=== PATIENT | male | born 1960 | race Caucasian/White ===

== ENCOUNTER 2017-07-28 18:03 | Observation (INO) | payer BC ==
[2017-07-28] MEDS ORDERED: ASPIRIN 81 MG CHEWABLE TAB PO ONE (18:07)
--- NOTE | 2017-07-28 18:12 | CPEKG ---
Heart Rate: 59 RR Interval: 1017 P-R Interval: 148 QRSD Interval: 110 QT Interval: 424 QTC Interval: 420 P [place]: 58 QRS [place]: 89 T Wave [place]: 41 EKG Severity - ABNORMAL ECG - EKG Impression: SINUS RHYTHM EKG Impression: NONSPECIFIC INTRAVENTRICULAR CONDUCTION DELAY EKG Impression: Isolated J-point elevation in lead V2 Electronically Signed By: Jem Wilkes 28-Jul-2017 21:11:23
[2017-07-28 18:24] LABS: % IMMATURE GRANULYOCYTES 0.2 % (0.0-1.1); ABSOLUTE IMMATURE GRANULOCYTES 0.01 10^3/uL (0.00-0.10); ADD DIFF? NO; ADD MORPH? NO; ADD SCAN? NO; ATYPICAL LYMPHOCYTE FLAG 20 (0-99); FRAGMENT RBC FLAG 0 (0-99); HEMATOCRIT 42.9 % (40.0-51.0); HEMOGLOBIN 14.8 g/dL (13.7-17.5); LEFT SHIFT FLG 0 (0-99); LIPEMIA HEMOLYSIS FLAG 90 (0-99); MEAN CELL HEMOGLOBIN 33.2 pg (27.9-34.1); MEAN CELL HEMOGLOBIN CONCENTR. 34.5 g/dL (32.4-36.7); MEAN CELL VOLUME 96.2 fL (81.5-99.8); MEAN PLATELET VOLUME 9.6 fL (8.7-11.7); PLATELET CLUMPS FLAG 0 (0-99); PLATELET COUNT 142 10^3/uL (150-400); RED BLOOD CELL COUNT 4.46 10^6/uL (4.40-6.38); RED CELL DISTRIBUTION WIDTH 12.2 % (11.5-15.2)
--- NOTE | 2017-07-28 18:29 | EDPHY ---
H & P Stated Complaint: chest pain started yesterday with left calf/knee pain Time Seen by Provider: 07/28/17 18:06 HPI/ROS: This patient complains of chest pain. He drove himself here by private vehicle for evaluation of symptoms that started yesterday afternoon while doing house chores. He describes substernal sharp pains that are fleeting lasting to 3 sec at a time and radiating to his left neck. He noticed increased frequency of the symptoms today and there seems to be in association with exertion. He cites more frequent episodes when he is exerting today caring furniture. He also complains of new onset of left proximal calf pain described as 1 or 2/10 ache at baseline but goes up to 6 or 7 with walking. He feels there is a knot in his proximal calf associated with this. The leg symptoms started yesterday as well. He has not taken any medications for his symptoms. He notes no other associated symptoms. He has occasionally had similar chest pains in the past but only isolated episodes with no recurrent sharp pains. He does report that the chest pain seems to be associated with a deep breath as well with exhalation. ROS: No recent fevers or chills. No significant fatigue. No other constitutional symptoms HEENT: Mild coryza that he attributes to seasonal allergies. Pulmonary: No shortness of breath. No cough. Cardiovascular: Mild lightheadedness today. No heart palpitations. Leg symptoms as noted in HPI. GI: No nausea or vomiting. No GERD symptoms. Endocrine: No diaphoresis. Musculoskeletal: He played basketball last weekend and had achy muscles including his leg for a few days after but the symptoms resolved prior to the onset of his leg pain yesterday. No other musculoskeletal complaints Integumentary: No skin rash, or pallor. Complete review of symptoms otherwise negative. Source: Patient Exam Limitations: No limitations - Personal History Current Tetanus Diphtheria and Acellular Pertussis (TDAP): Yes Tetanus Vaccine Date: 2010 - Medical/Surgical History PMH: And 2013 the patient had chest pains and an angiogram by Dr. Daryl Briggs performed at [facility]. The pt. reports that he had some coronary artery disease but nothing that warranted stenting. He was prescribed nitroglycerin however for his intermittent chest pains. Patient had a heart scan performed 05/30/2017 without high score that indicated a likely high chance of significant coronary artery plaque. His total calcium score was 492 which places him in the 90th percentile for his age group. Dyslipidemia on Lipitor Hx Cardiac Disease: Yes Other PMH: celiac dx, CAD, sleep apnea - Family History Significant Family History: No pertinent family hx - Social History Smoking Status: Never smoked Alcohol Use: Rarely Drug Use: None - Physical Exam Exam: Vital signs are normal on arrival. General Appearance: Pleasant 56-year-old male appears physically fit, Alert, no distress. Eyes: Pupils equal and round no pallor or injection. ENT, Mouth: Mucous membranes moist. Respiratory: There are no retractions, lungs are clear to auscultation. Cardiovascular: Regular rate and rhythm no murmur gallop or rub. 2+ pulses are symmetric bilateral lower extremities Gastrointestinal: Abdomen is soft and nontender, no masses, bowel sounds normal. Neurological: GCS of 15 Skin: Warm and dry, no rashes. Musculoskeletal: Neck is supple nontender. Extremities are symmetrical, full range of motion. Left leg is notable for mild to moderate proximal calf tenderness extends in the popliteal region. I do not appreciate significant swelling. Homans is positive for causing discomfort to the popliteal and posterior thigh region but not to the calf. Psychiatric: Mood and affect normal DIFFERENTIAL DIAGNOSIS: After history and physical exam differential diagnosis was considered for DVT, calf muscle strain, ischemic cardiac disease, GERD with esophageal spasm, pneumothorax, dissecting aorta, uric aneurysm, Constitutional: Initial Vital Signs Temperature (C) 36.4 C 07/28/17 18:05 Heart Rate 55 L 07/28/17 18:05 Respiratory Rate 18 07/28/17 18:05 Blood Pressure 116/73 07/28/17 18:05 O2 Sat (%) 97 07/28/17 18:05 O2 Delivery Mode Room Air Allergies/Adverse Reactions: Penicillins Allergy (Unknown, Verified 07/28/17 18:21) Home Medications: Medication Instructions Recorded Atorvastatin Calcium [Lipitor 10 03/16/13 mg (RX)] ESZOPICLONE [LUNESTA] 03/16/13 NITROGLYCERIN [NITROLINGUAL] 03/16/13 Medical Decision Making - Diagnostics EKG Interpretation: 12 lead EKG performed shortly after arrival at 6:10 p.m. reveals sinus rhythm at 59 Intervals: P R of 140, QRS of 110, QTC of 420 [place]: P of 58, QRS of 89, T of 41degrees ST segments: Isolated J-point elevation in V2 otherwise Normal throughout overall assessment sinus rhythm with nonspecific interventricular conduction delay. Repeat 12 lead EKG after nitropaste reveals no interval change by my interpretation. Please refer to trace for complete read. Imaging Results: Imaging Impressions Chest X-Ray 07/28/17 18:42 IMPRESSION: Normal chest x-ray. Imaging: I viewed and interpreted images myself ED Course/Re-evaluation: IV, monitor, aspirin p.o. Patient continue with fleeting intermittent chest pains but no persistent pain. 0.5 in nitroglycerin paste. Patient feels that the frequency of the fleeting pains are slightly less frequent but still occurring. He continues to have 1 to 2/10 fleeting chest pains. Maalox p.o. without change. I spoke with Dr. Cain-[employer] cleaner bone drier for [facility] regarding this patient who recommends admission, mi rule out and treadmill test in the morning if the patient has no evidence of MD overnight. The patient agrees to be admitted but declines EMS transport signing AMA form for transport only. He understands the risk of potential cardiac arrest and and accepts this risk. Total critical care time of continuous bedside treatment: 15 min Discussion: Patient with known coronary artery disease presents with atypical chest pain that is exertional. Currently no acute abnormalities appreciated on the EKG and 1st troponin is normal. However given his known coronary disease an exertional symptoms patient warrants admission for rule out and risk stratification. - Data Points Laboratory Results: Laboratory Results 07/28/17 18:19 07/28/17 18:19 07/28/17 07/28/17 07/28/17 18:19 18:19 18:19 WBC 5.03 10^3/uL 10^3/uL (3.80-9.50) RBC 4.46 10^6/uL 10^6/uL (4.40-6.38) Hgb 14.8 g/dL g/dL (13.7-17.5) Hct 42.9 % % (40.0-51.0) MCV 96.2 fL fL (81.5-99.8) MCH 33.2 pg pg (27.9-34.1) MCHC 34.5 g/dL g/dL (32.4-36.7) RDW 12.2 % % (11.5-15.2) Plt Count 142 10^3/uL L 10^3/uL (150-400) MPV 9.6 fL fL (8.7-11.7) Neut % (Auto) 64.0 % % (39.3-74.2) Lymph % (Auto) 20.3 % % (15.0-45.0) [place] % (Auto) 14.1 % H % (4.5-13.0) Eos % (Auto) 1.0 % % (0.6-7.6) Baso % (Auto) 0.4 % % (0.3-1.7) Nucleat RBC Rel Count 0.0 % % (0.0-0.2) Absolute Neuts (auto) 3.22 10^3/uL 10^3/uL (1.70-6.50) Absolute Lymphs (auto) 1.02 10^3/uL 10^3/uL (1.00-3.00) Absolute Monos (auto) 0.71 10^3/uL 10^3/uL (0.30-0.80) Absolute Eos (auto) 0.05 10^3/uL 10^3/uL (0.03-0.40) Absolute Basos (auto) 0.02 10^3/uL 10^3/uL (0.02-0.10) Absolute Nucleated RBC 0.00 10^3/uL 10^3/uL (0-0.01) Immature Gran % 0.2 % % (0.0-1.1) Immature Gran # 0.01 10^3/uL 10^3/uL (0.00-0.10) PT 14.3 SEC SEC (12.0-15.0) INR 1.12 (0.83-1.16) APTT 30.2 SEC SEC (23.0-38.0) D-Dimer < 0.27 ug/mLFEU ug/mLFEU (0.00-0.50) Sodium 139 mEq/L mEq/L (134-144) Potassium 4.1 mEq/L mEq/L (3.5-5.2) Chloride 98 mEq/L mEq/L (97-110) Carbon Dioxide 26 mEq/l mEq/l (22-31) Anion Gap 15 mEq/L mEq/L (8-16) BUN 25 mg/dL H mg/dL (7-23) Creatinine 0.9 mg/dL mg/dL (0.7-1.3) Estimated GFR > 60 Glucose 81 mg/dL mg/dL (70-100) Calcium 9.0 mg/dL mg/dL (8.5-10.4) Troponin I < 0.012 ng/mL ng/mL (0.000-0.034) Medications Given: Discontinued Medications Al Hydroxide/Mg Hydroxide (Maalox Susp) 30 ml PO EDNOW ONE Stop: 07/28/17 20:15 Last Admin: 07/28/17 20:39 Dose: 30 ml Aspirin (Aspirin) 324 mg PO EDNOW ONE Stop: 07/28/17 18:08 Last Admin: 07/28/17 18:15 Dose: 324 mg Sodium Chloride (Ns) 1,000 mls @ 0 mls/hr IV ONCE ONE; Wide Open PRN Reason: Protocol Stop: 07/28/17 18:45 Last Admin: 07/28/17 18:52 Dose: 1,000 mls Nitroglycerin (Nitro-Bid 2%) 0.5 inch TP EDNOW ONE Stop: 07/28/17 18:45 Last Admin: 07/28/17 18:53 Dose: 0.5 inch Departure - Departure Disposition: [facility] Clinical Impression: Acute chest pain, History of coronary artery disease Condition: Fair
[2017-07-28 18:37] LABS: INR 1.12 (0.83-1.16); PROTIME(PATIENT) 14.3 SEC (12.0-15.0)
[2017-07-28 18:38] LABS: APTT 30.2 SEC (23.0-38.0)
[2017-07-28 18:39] LABS: ANION GAP 15 mEq/L (8-16); CARBON DIOXIDE 26 mEq/l (22-31); CHLORIDE 98 mEq/L (97-110); CREATININE 0.9 mg/dL (0.7-1.3); GLOMERULAR FILTRATION RATE > 60; GLUCOSE 81 mg/dL (70-100); POTASSIUM 4.1 mEq/L (3.5-5.2); SODIUM 139 mEq/L (134-144)
[2017-07-28] MEDS ORDERED: NITROGLYCERIN 2% 1 GM PACKET TP ONE (18:44)
[2017-07-28] MEDS ORDERED: NS 1,000 ML IV ONE (18:44)
[2017-07-28 18:53] LABS: TROPONIN I < 0.012 ng/mL (0.000-0.034)
--- NOTE | 2017-07-28 19:24 | CPEKG ---
Heart Rate: 57 RR Interval: 1053 P-R Interval: 144 QRSD Interval: 112 QT Interval: 428 QTC Interval: 417 P [place]: 35 QRS [place]: 83 T Wave [place]: 37 EKG Severity - ABNORMAL ECG - EKG Impression: SINUS RHYTHM EKG Impression: NONSPECIFIC INTRAVENTRICULAR CONDUCTION DELAY EKG Impression: Isolated J-point elevation in lead V2 Electronically Signed By: Jem Wilkes 28-Jul-2017 21:10:46
[2017-07-28] MEDS ORDERED: MAG HYDROX/AL HYDROX/SIMETH 30 ML UDCUP PO ONE (20:14)
[2017-07-28] MEDS ORDERED: ONDANSETRON 4 MG/2 ML VIAL IVP PRN (20:15)
[2017-07-28] MEDS ORDERED: ONDANSETRON DISINTEGRATING 4 MG TAB PO PRN (20:15)
[2017-07-28] MEDS ORDERED: ACETAMINOPHEN 325 MG TAB PO PRN (20:15)
[2017-07-28] MEDS ORDERED: QUEtiapine FUMARATE 25 MG TAB PO ONE (22:53)
--- NOTE | 2017-07-28 23:37 | SOAPPROG ---
CINDY Progress Note Assessment/Plan: Assessment: Plan: 07/28/17 23:37 CP with known CAD and plaque progression by heartscan. Serial troponins and EKG 's ordered. Cards consult with Dr Cain done in ER. AM stress test planned. Labs nl to this point. Consider CT chest with contrast to eval aorta is stress testing nl. Consider AM echo. Proximal left calf pain. Check Venous doppler, r/o DVT (doubt) Subjective: The patient has been having intermittent sharp left substernal CP lasting for a few seconds for a good portion of the day. No SOB, no pressure, no n/v. no sweats, no restriction of activities. He is having left proximal calf pain starting yesterday and seemingly worsening today. No h/o clot. He played basketball with his son a few days ago without challenges. He was sore the next day. No dysphagia. No heartburn/reflux sx. Mylanta did not change sx in ER. Topical NTG may have lessened the severity of his sx a bit. Objective: Vital Signs Temp Pulse Resp BP Pulse Ox 36.6 C 60 16 115/71 92 07/28/17 22:53 07/28/17 22:53 07/28/17 22:53 07/28/17 22:53 07/28/17 22:53 07/27/17 07/28/17 07/29/17 05:59 05:59 05:59 Intake Total 1000 Balance 1000 PT 14.3 SEC (12.0-15.0) 07/28/17 18:19 INR 1.12 (0.83-1.16) 07/28/17 18:19 Gen: Bright, NAD HEENT: nasal congestion Neck without JVPE Lungs: CTAB Heart: RRR no m/r/g Abd + bs soft nt/nd Left proximal calf moderately ttp. no masses 2/4 radial and dp pulses B Skin: w/d/i EGK NSR ICD10 Worksheet Patient Problems: Problems Problem Status Onset Acute chest pain Acute History of coronary artery disease Acute
--- NOTE | 2017-07-29 00:35 | GHP ---
[ rep st] HISTORY AND PHYSICAL DATE OF ADMISSION: 07/28/2017 REASON FOR ADMISSION: Chest pain. HISTORY OF PRESENT ILLNESS: The patient is a 56-year-old male with known underlying CAD by heart sca n who developed intermittent, left-sided, somewhat sharp, chest pain lasting for a few seconds but wi th moderate intensity. This has been an intermittent phenomenon for a good portion of today. He campoverde s not have shortness of breath. No cough, wheeze, or congestion. No nausea or vomiting. He is mild ly tired. He has not had any diaphoresis. He cannot touch or modify the pain when it occurs. He mclean s had moderate pain in his proximal left calf. There was some swelling that seems to have improved. He did play basketball with his son a few days ago. He had some musculoskeletal soreness afterwards , but no unusual cardiac symptomatology. He has had somewhat similar chest pains worked up in the [facility], including angiogram perhaps 4 years ago at [facility]. Symptoms have intensified today for reasons t hat are not clear. He has not had difficulty with swallowing. No sense of heartburn. No other musc uloskeletal injuries that he is aware of. He otherwise feels comfortable. PAST MEDICAL HISTORY: Known atherosclerosis by heart scan with significant progression from May 2017 heart scan, dyslipidemia, sleep apnea, insomnia, seasonal allergies. ALLERGIES: Penicillin. MEDICATIONS: As per chart. He is on an aggressive lipid management regimen. PAST SURGICAL HISTORY: Noncontributory. REVIEW OF SYSTEMS: GENERAL: Mildly tired. No fever, chills, or signs of illness. HEENT: Chronic nasal stuffiness. Previous left-sided sinus and left hearing deficits seem to have i mproved to some level. He has mild left maxillary soreness. No dental complaints. No sore throat. NECK: He denies neck pain or tenderness. CHEST: He does feel the pain on the left chest radiates somewhat to the left neck when it occurs. N o range of motion limitations with his neck. LUNGS: He denies shortness of breath, cough, wheeze, or congestion. HEART: As per HPI. GI: Per HPI. No bowel habit changes. : No urinary changes. SKIN: No skin changes. MUSCULOSKELETAL: Sites from left calf proximal region of pain. He is otherwise asymptomatic at this time. PHYSICAL EXAMINATION: VITAL SIGNS: Blood pressure one-teens over 60s to 70s. Heart rate in the 60s . Saturation 92% to 95% room air. He is afebrile. GENERAL: A pleasant comfortable male resting in bed at time of interview. HEENT: Grossly unremarkable. Nasal congestion is notable with breathing through his nose. Orophary nx benign. NECK: Without masses. No jugular venous pressure elevation. No carotid bruits. LUNGS: Clear without crackles, wheeze, or congestion. HEART: Regular rate and rhythm. No murmur, rub, or gallops appreciated. ABDOMEN: Positive bowel sounds. Soft, nontender, nondistended. SKIN: Warm, dry, intact. EXTREMITIES: Two of 4 radial, DP, and PT pulses are appreciated. Proximal medial left calf is moder ately tender on palpation. No clear cords are noted. Knees without gross effusions on either side. LAB WORK: CBC is normal except for a mildly low platelet count of 142. D-dimer is normal. INR 1.12 . Chemistry: BUN 25. Troponin undetectable. Metabolic panel otherwise normal. ASSESSMENT: Left-sided chest pain in patient with known coronary artery disease with plaque progress ion by heart scan. His symptoms are difficult to exactly define. He has serial troponins ordered as well as serial EKGs. To this point, they have been sinus rhythm. He has had Cardiology input from the ER doctor consulted with Dr. Cain in the ER. A stress test is ordered for the morning. Consid er CT of chest to evaluate aortic health if stress testing is unremarkable. Left calf de santiago, rule out the potential of budding DVT. We will continue his regular medicines for now. Continue with CPAP t herapy, which patient has brought with him to the hospital. Anticipated admission at this point to [facility] work up his symptoms and hopeful discharge to home tomorrow if things are found to be normal an d appropriate. /[id number]/MODL
[2017-07-29 07:10] LABS: CHOLESTEROL 111 mg/dL (140-220); CHOLESTEROL/HDL RATIO 2.41 RATIO (1.00-4.97); HIGH DENSITY LIPOPROTEIN 46 mg/dL (40-65); LDL/HDL RATIO 1.09 RATIO (1.00-3.64); LOW DENSITY LIPOPROTEIN 50 mg/dL (80-100); NON-HIGH DENSITY LIPOPROTEIN 65 mg/dL (90-129); TRIGLYCERIDE 77 mg/dL (40-150); VERY LOW DENSITY LIPOPROTEINS 15 mg/dL (8-25)
[2017-07-29 07:20] LABS: TROPONIN I < 0.012 ng/mL (0.000-0.034)
[2017-07-29 07:41] VITALS: RESP 16; TEMP 97.8
--- NOTE | 2017-07-29 08:39 | CPEKG ---
Heart Rate: 55 RR Interval: 1091 P-R Interval: 140 QRSD Interval: 112 QT Interval: 448 QTC Interval: 429 P [place]: 44 QRS [place]: 86 T Wave [place]: 48 EKG Severity - ABNORMAL ECG - EKG Impression: SINUS RHYTHM EKG Impression: NONSPECIFIC INTRAVENTRICULAR CONDUCTION DELAY Electronically Signed By: Idris Jose 31-Jul-2017 23:12:04
--- NOTE | 2017-07-29 08:42 | SOAPPROG ---
CINDY Progress Note Assessment/Plan: Assessment: Plan: 07/28/17 23:37 CP with known CAD and plaque progression by heartscan. Serial troponins and EKG 's ordered. Cards consult with Dr Cain done in ER. AM stress test planned. Labs nl to this point. Consider CT chest with contrast to eval aorta is stress testing nl. Consider AM echo. Proximal left calf pain. Check Venous doppler, r/o DVT (doubt) 07/29/17 08:42 CP with known CAD, stress test pending. high stress--he is going to modify this left sided symptoms and central CP. if stress test normal CTA Chest r/o PE/ aneurysm high chol--numbers good on paper today Subjective: He had CP episodes through the night. In retrospect he has had night time symptoms on and off for a longer period of time. He has been under lots of stress at work and plans to slow this down. No SOB. + left sided numbness at night resolves when he moves. Stress test pending Objective: Vital Signs Temp Pulse Resp BP Pulse Ox 36.6 C 60 16 107/60 91 L 07/29/17 07:40 07/29/17 07:40 07/29/17 07:40 07/29/17 07:40 07/29/17 07:40 07/28/17 07/29/17 07/30/17 05:59 05:59 05:59 Intake Total 1301 Balance 1301 PT 14.3 SEC (12.0-15.0) 07/28/17 18:19 INR 1.12 (0.83-1.16) 07/28/17 18:19 Gen: NAD Heart: RRR morning EKG being done now, stress test in 1 hour Lungs: CTAB US LLE--+ Graham's cyst, no DVT ICD10 Worksheet Patient Problems: Problems Problem Status Onset Acute chest pain Acute History of coronary artery disease Acute
[2017-07-29] MEDS ORDERED: TEMAZEPAM 15 MG CAP PO PRN (11:11)
[2017-07-29] MEDS ORDERED: diphenhydrAMINE 25 MG CAP PO ONE (11:11)
[2017-07-29] MEDS ORDERED: DIAZEPAM 5 MG TAB PO ONE (11:11)
[2017-07-29] MEDS ORDERED: NITROGLYCERIN 0.4 MG BTL SL PRN (11:11)
[2017-07-29] MEDS ORDERED: FAMOTIDINE 20 MG TAB PO ONE (11:11)
[2017-07-29] MEDS ORDERED: ASPIRIN EC 325 MG TAB PO ONE (11:11)
[2017-07-29] MEDS ORDERED: NS 1,000 ML IV SCH (11:15)
[2017-07-29] MEDS ORDERED: LIDOCAINE 1% 300 MG/30 ML SDV ONE (11:28)
[2017-07-29] MEDS ORDERED: fentaNYL 100 MCG/2 ML INJ ONE ×2 (11:28→12:11)
[2017-07-29] MEDS ORDERED: MIDAZOLAM 2 MG/2 ML VIAL ONE ×2 (11:29→12:11)
[2017-07-29] MEDS ORDERED: IOPAMIDOL (ISOVUE-370) 150 ML BTL IV ONE (11:29)
--- NOTE | 2017-07-29 11:42 | PDHPUP ---
History & Physical Update H&P update statement: This history and physical update is based on an assessment of the patient which was completed after admission or registration (within 24 hours), but prior to the surgery/procedure. H&P update: H&P reviewed & patient examined, no change in patient's condition since H&P completed
--- NOTE | 2017-07-29 11:43 | PDPROPOC ---
Sedation Plan of Care Sedation Plan of Care: vital signs stable, mental status noted, patient educated of risks, benefits, alternatives, patient can tolerate sedation ASA Classification: ASA 2 Planned drugs: fentanyl, midazolam Mallampati Score: Class 2 Mallampati Reference Image: Patient passed 3-3-2 rule?: Yes
--- NOTE | 2017-07-29 11:47 | ASMTCMCOM ---
CM Note CM Note Notes: Patient admitted for chest pain; he is being taken to the [facility] today. He will likely not have any discharge needs - lives independently with . Case Management available if needs arise. Current Case Management Discharge planL home with Date Signed: 07/29/2017 11:47 AM Electronically Signed By:Amy Nair RN
[2017-07-29] MEDS ORDERED: ATROPINE SULFATE 1 MG/10 ML SYR IVP PRN (12:57)
[2017-07-29] MEDS ORDERED: IOPAMIDOL (ISOVUE 370) 100 ML BTL IV ONE (14:15)
[2017-07-29 15:01] VITALS: BP 108/61; PULSE 64; O2SAT 94
[2017-07-29] MEDS ORDERED: PNEUMOCOCCAL 0.5ML VACCINE VIAL IM ONE (15:16)
[2017-07-29] MEDS ORDERED: FLU VACC QS 2017-18 (3YR+)/PF 0.5 ML SYR (FLUARIX QUAD) IM ONE (15:16)
--- NOTE | 2017-07-29 16:43 | CPR ---
[f rep st] NONINVASIVE CARDIAC PROCEDURE REPORT DATE OF PROCEDURE: 07/29/2017 PROCEDURE: Exercise treadmill stress test. RESTING: EKG shows a sinus rhythm with a rate of 69. Resting blood pressure 118/60, oxygen saturati on 98%. REASON FOR TEST: Chest pain. EXERCISE PORTION: He was exercised according to the Cordell protocol for a total of 6 minutes. He had mild chest discomfort, 3/10, which has been constant over the night. During exercise, the chest dis comfort remained the same. He did have inferior lead changes of upsloping and downsloping EKG change s. He had no arrhythmias. He did reach 90% maximal effort. Stress test was stopped due to EKG hart ges. He reached a MET level of 6.9, maximal blood pressure 158/60, maximal heart rate 146. Total ex ercise time: 6 minutes. RECOVERY: He did spontaneously recover. The chest pain did lighten to a 2/10 and constant. Resting blood pressure 122/82, resting heart rate 81 and regular, oxygen saturation 98%. This EKG was reviewed with Dr. Harish Cain. He will visit with the patient further. He will likely need a nuclear stress test versus cardiac angiogram. At this time, he currently is stable. /[id number]/MODL
--- NOTE | 2017-07-29 18:03 | CPIP ---
[f rep st] INVASIVE CARDIAC PROCEDURE DATE OF PROCEDURE: 07/29/2017 PROCEDURE: 1. Coronary angiography. 2. Left ventriculography. INDICATION: 1. Known coronary artery disease. 2. Chest pain syndrome, concerning for an acute coronary syndrome. ACCESS: Patient was prepped and draped in sterile fashion. 1% lidocaine was used to anesthetize the right inguinal region. A 6-[place] introducer sheath was placed selectively into the right common fe moral artery via modified Seldinger technique. CORONARY ANGIOGRAPHY: A 6-[place] JL4 was advanced to left main coronary artery and images obtained. The left main coronary artery bifurcated into an LAD and circumflex coronary arteries. The left ramin n coronary artery appeared normal. The left anterior descending coronary artery gave rise to 2 promi nent diagonal branches. The left anterior descending coronary artery had mild luminal irregularities throughout. There was no stenosis greater than 10%. The diagonal arteries were free of any signifi cant disease. The circumflex coronary artery is a large vessel. Circumflex coronary artery is domin ant. Circumflex coronary artery appeared normal. A 6-[place] no-torque right catheter was advanced t o the right coronary artery and images obtained. The right coronary artery is nondominant. The righ t coronary artery appeared normal. LEFT VENTRICULOGRAPHY: A 6-[place] pigtail catheter was advanced in the left ventricle and images obt ained. Left ventricle is normal in size with normal systolic function. Estimated ejection fraction is 55%. COMPLICATIONS: None. CONCLUSIONS: 1. Mild coronary artery disease without flow limitation. 2. Normal left ventricular size and systolic function. 3. Plan is for medical management. /[id number]/MODL
[2017-07-29] MEDS ORDERED: CHOLECALCIFEROL VIT D3 1,000 UNITS TAB PO SCH (21:00)
[2017-07-29] MEDS ORDERED: CHOLECALCIFEROL 3000 UNIT PO SCH (21:00)
--- NOTE | 2017-07-30 03:16 | GCON ---
[f rep st] CONSULTATION DATE OF CONSULTATION: 07/29/2017 CHIEF COMPLAINT: We have been asked by Dr. Dillon to evaluate this patient with a chief complaint of chest pain. HISTORY OF PRESENT ILLNESS: The patient is a 56-year-old gentleman with known coronary artery diseas e by coronary artery calcium scoring, who presents with a chief complaint of chest pain. The chest p ain is described as an ache in the center of his chest extending up into his neck region. The chest pain is not associated with nausea, vomiting, or diaphoresis. The chest discomfort will come on, las t a few seconds, and then resolve without intervention. The chest discomfort is not like his previou s reflux symptoms where he actually had a taste of acid in the throat, but is similar in location. T he patient has had this chest discomfort off and on for a number of years, but is increased in freque ncy the 2 days prior to admission. PAST MEDICAL HISTORY: 1. Coronary artery disease. 2. Hyperlipidemia. 3. Gastroesophageal reflux disease. 4. Sleep apnea. 5. Seasonal allergies. MEDICATIONS: Please see medicine reconciliation form. ALLERGIES: Penicillin. SOCIAL HISTORY: The patient works in [employer]. He does not smoke. He denies problems with alcohol . FAMILY HISTORY: Negative for early onset of coronary artery disease. REVIEW OF SYSTEMS: A 10-point review of systems is negative, except as noted in HPI. PHYSICAL EXAMINATION: GENERAL: The patient is resting comfortably in bed. He does not appear to be in acute distress. VITAL SIGNS: Temperature is afebrile. Pulse is 56, blood pressure 117/68, resp iratory rate 16, SaO2 96% on room air. HEENT: Normocephalic atraumatic. Extraocular muscles intact . NECK: No JVD. No bruits. LUNGS: Clear to auscultation bilaterally. CARDIOVASCULAR: Regular r ate and rhythm. S1, S2. No murmurs, rubs, or gallops appreciated. ABDOMEN: Soft, nontender. Norm oactive bowel sounds. EXTREMITIES: No clubbing, cyanosis, or edema. NEURO: Patient is awake, aler t, and oriented x3. LABORATORY: White blood cell count is 5.03, hemoglobin is 14.8, hematocrit is 42.9, platelet count i s 142, D-dimer is less than 0.27. Sodium 139, potassium 4.1, chloride 98, CO2 26, BUN 25, creatinine 0.9. Troponin within normal limits x3. LDL cholesterol is 50. EKG demonstrates sinus rhythm with nonspecific ST and T changes in the inferior and lateral leads. Stress testing was notable for 1 mm of horizontal with up sloping ST-segment depression in the inferior and lateral leads. His Randhawa danielle dmill score was 1, placing him at intermediate risk. ASSESSMENT AND PLAN: The patient is a 56-year-old gentleman with known coronary artery disease by co ronary artery calcium score, who presents with a chief complaint of chest pain. The chest pain is at ypical for angina and that is not brought on by exertion and relieved with rest. His biomarkers are within normal limits. His EKG demonstrates no acute ST or T-wave changes. His stress test was notab le for intermediate risk. Reviewed options for further risk stratification including nuclear stress testing versus cardiac catheterization. Patient wishes to pursue cardiac catheterization. We will a rrange to have this performed. /[id number]/MODL
--- NOTE | 2017-07-30 03:16 | GDS ---
[f rep st] DISCHARGE SUMMARY This is a 56-year-old male, who presented to the ED yesterday evening complaining of atypical chest p ain. The patient reported left-sided, somewhat sharp chest pain that lasted only for a few seconds, but with moderate intensity. His symptoms had been intermittent throughout most of the day yesterday . He did not have any shortness of breath, cough, wheeze, congestion, nausea, vomiting, diaphoresis, dizziness, or lightheadedness. He was admitted for observation and serial troponins. Dr. Ant diehl consulted and performed a stress test this morning. Based on results of the stress test, he was ta annabelle to the [facility] for evaluation without any intervention. He also received a CT angiogram this af ternoon to rule out pulmonary emboli or cardiac anomaly that could be contributing to his symptoms, w hich was negative. Due to some left calf swelling and pain, he underwent a venous extremity Doppler ultrasound which was negative for a DVT. He will plan to discharge home this evening and to follow u p outpatient with Dr. Alfaro next week in the office. DISCHARGE MEDICATIONS: Include vitamin D3 at 3000 units p.o. b.i.d., vitamin B12 at 5000 mcg p.o. da katia, aspirin 81 mg p.o. daily, multivitamin 1 tablet p.o. daily, quetiapine 25 mg p.o. q.h.s., pravas tatin sodium 10 mg p.o. daily, magnesium citrate 200 mg p.o. b.i.d.. He will be discharged on groin precautions, though he does have an Angio-seal to his femoral, from [facility] heart cath. /[id number]/MODL
[2017-07-30] MEDS ORDERED: ASPIRIN EC 81 MG TAB PO SCH (09:00)
[2017-07-30] MEDS ORDERED: PRAVASTATIN SODIUM 10 MG TAB PO SCH (09:00)
[2017-07-30] MEDS ORDERED: CYANO/VITAMIN B12 1000 MCG TAB PO SCH (09:00)
[2017-07-30] MEDS ORDERED: QUEtiapine FUMARATE 25 MG TAB PO SCH (21:00)
== END 2017-07-29 17:42 | disposition home or self-care (01) ==
LOC: CED 18:03 → CEDHOLD 20:13 → F2W 22:05
PROVIDERS: ADMIT Hospitalist; ATTEND Hospitalist
PROC: B2151ZZ Fluoroscopy of Left Heart using Low Osmolar Contrast (ICD-10-PCS; principal; 2017-07-28)
PROC: 4A023N7 Measurement of Cardiac Sampling and Pressure, Left Heart, Percutaneous Approach (ICD-10-PCS; principal; 2017-07-28)
PROC: B2111ZZ Fluoroscopy of Multiple Coronary Arteries using Low Osmolar Contrast (ICD-10-PCS; principal; 2017-07-28)
DX: R07.9 Chest pain, unspecified (principal); I25.10 Atherosclerotic heart disease of native coronary artery without angina pectoris; E78.5 Hyperlipidemia, unspecified; K21.9 Gastro-esophageal reflux disease without esophagitis; G47.33 Obstructive sleep apnea (adult) (pediatric); J30.2 Other seasonal allergic rhinitis
CPT/HCPCS: 71020; 71275; 90471; 93005; 93017; 93458; 93971; G0378; 80048-PO; 84484-PO; 85025-PO; 85378-PO; 85610-PO; 85730-PO; C1760; G0008; G0009; J1644; J2250; J3010; Q9967

== ENCOUNTER 2017-10-20 20:24 | Emergency (ER) | payer BC ==
[2017-10-20 20:32] VITALS: RESP 16
--- NOTE | 2017-10-20 20:32 | CPEKG ---
Heart Rate: 75 RR Interval: 800 P-R Interval: 152 QRSD Interval: 114 QT Interval: 396 QTC Interval: 443 P Durham: 73 QRS Durham: 86 T Wave Durham: 16 EKG Severity - ABNORMAL ECG - EKG Impression: SINUS RHYTHM EKG Impression: NONSPECIFIC INTRAVENTRICULAR CONDUCTION DELAY Electronically Signed By: Luca Worthington 20-Oct-2017 23:28:52
[2017-10-20 21:01] LABS: PLATELET COUNT 153 10^3/uL (150-400)
--- NOTE | 2017-10-20 21:12 | EDPHY ---
H & P Time Seen by Provider: 10/20/17 20:39 HPI/ROS: Chief complaint. Chest pain HPI. 57-year-old male presents emergency department with chest tightness and lightheadedness that began at 5:00 p.m.. He has to left anterior chest tightness that radiates to his left shoulder blade. No shortness of breath. His symptoms are worse with exertion. No fever or cough. Patient has a telephone prabha which showed that he was in atrial fibrillation at 5:50 p.m.. Patient has known coronary artery disease. He is feeling better now and has minimal chest discussed comfort. Patient did take aspirin prior to arrival ROS Constitutional. no fever/chills, no weakness Eyes. no problems with vision ENT. no sore throat, no nasal drainage Cardiovascular. Chest tightness Respiratory. no shortness of breath, no cough Abdominal. no abdominal pain, no nausea/vomiting, no diarrhea . no problems urinating MS. no calf pain/swelling, no neck/back pain, no joint pain Skin. no rash Lymph. no swollen glands Neuro. no headache, no dizziness, no difficulty walking or with speech Past Medical/Surgical History: Past medical history significant for celiac disease, coronary artery disease, sleep apnea, dyslipidemia Social History: , nonsmoker, no alcohol Smoking Status: Never smoked Physical Exam: General Appearance: Alert well-developed male mild distress vital signs are stable Eyes: Pupils equal and round no pallor or injection. ENT, Mouth: Mucous membranes are moist. Respiratory: There are no retractions, lungs are clear to auscultation. Cardiovascular: Regular rate and rhythm. Gastrointestinal: Abdomen is soft and nontender, no masses, bowel sounds normal. Neurological: Awake and alert, sensory and motor exams grossly normal. Skin: Warm and dry, no rashes. Musculoskeletal: Neck is supple nontender. Extremities symmetrical, full range of motion. Psychiatric: Patient is oriented X 3, there is no agitation. Constitutional: Initial Vital Signs Heart Rate 76 10/20/17 20:29 Respiratory Rate 16 10/20/17 20:29 Blood Pressure 120/92 H 10/20/17 20:29 O2 Sat (%) 99 10/20/17 20:29 O2 Delivery Mode Room Air Allergies/Adverse Reactions: Penicillins Allergy (Unknown, Verified 10/20/17 20:29) Home Medications: Medication Instructions Recorded Aspirin EC [Aspirin EC 81 mg (*)] 81 mg PO DAILY 07/29/17 Cholecalciferol (Vitamin D3) 3,000 unit PO BID 07/29/17 [Vitamin D3] Cyanocobalamin [Vitamin B12 (*)] 5,000 mcg PO DAILY 07/29/17 Herbals/Supplements -Info Only 1 ea PO DAILY 07/29/17 Magnesium Citrate 200 mg PO BID 07/29/17 Pravastatin Sodium 10 mg PO DAILY 07/29/17 Quetiapine Fumarate 25 mg PO HS 07/29/17 Medical Decision Making - Diagnostics EKG Interpretation: EKG interpreted by me shows normal sinus rhythm with normal interval and axis. Nonspecific interventricular conduction delay. No significant ST elevation or depression. No arrhythmia. The rate is 75 This is not changed from previous EKG 07/28/2017 Imaging Results: Imaging Impressions Chest X-Ray 10/20/17 20:57 Impression: No acute findings in the chest. One-view chest x-ray up interpreted by me is normal Procedures: IV normal saline, monitor ED Course/Re-evaluation: Recheck at 10:05 p.m.--patient is stable and continuing to feel better The patient, his , and I discussed imaging, EKG, laboratory evaluation. We discussed treatment plan including recommendation for admission. The patient does not wish to be admitted as he is feeling better. The patient and his and I discussed risks and benefits of admission versus outpatient management and follow-up. They realize there is some risk involved and following up with their regular physician as an outpatient tomorrow. Differential Diagnosis: I considered acute coronary syndrome, pneumonia, electrolyte abnormality. Patient has a phone prabha which showed that he had an episode of atrial fibrillation this afternoon. - Data Points Laboratory Results: Laboratory Results 10/20/17 Unknown 10/20/17 Unknown 10/20/17 10/20/17 Unknown Unknown WBC 5.40 10^3/uL 10^3/uL (3.80-9.50) RBC 4.82 10^6/uL 10^6/uL (4.40-6.38) Hgb 16.2 g/dL g/dL (13.7-17.5) Hct 45.6 % % (40.0-51.0) MCV 94.6 fL fL (81.5-99.8) MCH 33.6 pg pg (27.9-34.1) MCHC 35.5 g/dL g/dL (32.4-36.7) RDW 11.5 % % (11.5-15.2) Plt Count 153 10^3/uL 10^3/uL (150-400) MPV 9.8 fL fL (8.7-11.7) Neut % (Auto) 55.0 % % (39.3-74.2) Lymph % (Auto) 30.9 % % (15.0-45.0) [place] % (Auto) 12.8 % % (4.5-13.0) Eos % (Auto) 0.7 % % (0.6-7.6) Baso % (Auto) 0.4 % % (0.3-1.7) Nucleat RBC Rel Count 0.0 % % (0.0-0.2) Absolute Neuts (auto) 2.97 10^3/uL 10^3/uL (1.70-6.50) Absolute Lymphs (auto) 1.67 10^3/uL 10^3/uL (1.00-3.00) Absolute Monos (auto) 0.69 10^3/uL 10^3/uL (0.30-0.80) Absolute Eos (auto) 0.04 10^3/uL 10^3/uL (0.03-0.40) Absolute Basos (auto) 0.02 10^3/uL 10^3/uL (0.02-0.10) Absolute Nucleated RBC 0.00 10^3/uL 10^3/uL (0-0.01) Immature Gran % 0.2 % % (0.0-1.1) Immature Gran # 0.01 10^3/uL 10^3/uL (0.00-0.10) Sodium 137 mEq/L mEq/L (135-145) Potassium 3.7 mEq/L mEq/L (3.5-5.2) Chloride 103 mEq/L mEq/L (97-110) Carbon Dioxide 20 mEq/l L mEq/l (22-31) Anion Gap 14 mEq/L mEq/L (8-16) BUN 15 mg/dL mg/dL (7-23) Creatinine 1.0 mg/dL mg/dL (0.7-1.3) Estimated GFR > 60 Glucose 84 mg/dL mg/dL (70-100) Calcium 9.1 mg/dL mg/dL (8.5-10.4) Troponin I < 0.012 ng/mL ng/mL (0.000-0.034) Departure - Departure Disposition: Home, Routine, Self-Care Clinical Impression: Chest pain Qualifiers: Chest pain type: unspecified Qualified Code(s): R07.9 - Chest pain, unspecified Atrial fibrillation Qualifiers: Atrial fibrillation type: paroxysmal Qualified Code(s): I48.0 - Paroxysmal atrial fibrillation Condition: Good Instructions: A-fib (Atrial Fibrillation) (ED), Chest Pain (ED) Additional Instructions: Return tonight for worsening symptoms. Follow up with Dr. Alfaro tomorrow for further evaluation Referrals: Wade Alfaro MD [Primary Care Provider] - 1 day without fail
[2017-10-20 22:19] VITALS: BP 108/70; PULSE 68; O2SAT 98
== END 2017-10-20 22:22 | disposition home or self-care (01) ==
DX: I48.0 Paroxysmal atrial fibrillation (principal); I25.10 Atherosclerotic heart disease of native coronary artery without angina pectoris; Z79.82 Long term (current) use of aspirin